=== PATIENT | male | born 1980 | race Caucasian/White ===

== ENCOUNTER 2020-01-31 12:30 | Emergency (ER) | payer MEDICAID, MEDICARE ==
[~2020-01-31] VITALS: Ht 162.6 cm; Wt 77.1 kg
[~2020-01-31 12:30] MED LIST: AML5T PO; BUME1TAB28 PO; FERR-20 PO; MET25T PO
[2020-01-31 17:52] VITALS: BP 146/78
== END 2020-01-31 17:56 | disposition home or self-care (01) ==
LOC: ER 12:30
DX: T17.208A Unspecified foreign body in pharynx causing other injury, initial encounter (principal); E11.22 Type 2 diabetes mellitus with diabetic chronic kidney disease; I13.2 Hypertensive heart and chronic kidney disease with heart failure and with stage 5 chronic kidney disease, or end stage renal disease; I50.9 Heart failure, unspecified; N18.6 End stage renal disease; K21.9 Gastro-esophageal reflux disease without esophagitis; Z88.1 Allergy status to other antibiotic agents; Z79.899 Other long term (current) drug therapy; W22.8XXA Striking against or struck by other objects, initial encounter; Y93.89 Activity, other specified; Y92.89 Other specified places as the place of occurrence of the external cause; Y99.8 Other external cause status
CPT/HCPCS: 42809; 70360; 71045

== ENCOUNTER 2020-07-20 17:17 | Inpatient (IN) | payer MEDICARE, MEDICAID ==
[~2020-07-20] VITALS: Ht 172.7 cm; Wt 75.5 kg
[2020-07-20] MEDS ORDERED: LORazepam 2MG/ML-1ML VIAL IV ONE ×2 (17:44→20:00)
[2020-07-20] MEDS ORDERED: LORazepam 2MG/ML-1ML VIAL ONE (17:44)
[2020-07-20 19:03] LABS: Basophils # (auto) 0.1 10 ^3/uL (0-0.2); Basophils % (auto) 0.9 % (0.0-2.0); Eosinophils # (auto) 0.1 10 ^3/uL (0-0.8); Eosinophils % (auto) 1.1 % (0.0-7.0); Hemoglobin 11.9 g/dL (13.5-17.5); Lymphocytes # (auto) 1.5 10 ^3/uL (0.4-5.4); Lymphocytes % (auto) 13.3 % (10.0-50.0); Mean Corpuscular Hemoglobin 29.4 pg (28.0-32.0); Mean Corpuscular Hgb Conc. 31.3 g/dL (32.0-36.0); Monocytes # (auto) 0.7 10 ^3/uL (0-1.3); Monocytes % (auto) 5.9 % (0.0-12.0); Neutrophils # (auto) 8.8 10 ^3/uL (1.6-8.6); Neutrophils % (auto) 78.8 % (37.0-80.0); Platelet Count (auto) 41 10^3/uL (140-450); Red Blood Cells 4.05 10^6/uL (4.5-5.90); Red Cell Distribution Width 17.3 % (11.8-14.3); White Blood Cell 11.2 10^3/uL (4.4-10.8)
[2020-07-20] MEDS ORDERED: levoFLOXacin 500MG 100 ML IV ONE (19:15)
[2020-07-20] MEDS ORDERED: ACETAMINOPHEN 325 MG TAB PO ONE (19:15)
[2020-07-20 19:23] LABS: Albumin 3.8 g/dL (3.4-5.0); Calcium 9.2 mg/dL (8.5-10.1); Potassium 4.1 mmol/L (3.5-5.1)
[2020-07-20 19:28] LABS: BUN/Creatinine Ratio 6.3; Bilirubin, Total 0.5 mg/dL (0.2-1.0); Total Protein 7.5 g/dL (6.4-8.2)
[2020-07-20 19:36] LABS: Lactic Acid w/Reflex 14.4 mmol/L (0.4-2.0)
[2020-07-20 19:38] LABS: Partial Thromboplastin Time 21.7 sec (23.0-31.2)
[2020-07-20] MEDS ORDERED: FUROSEMIDE 20 MG/2 ML VIAL IV ONE (21:00)
[2020-07-20] MEDS ORDERED: AMIODARONE 450mg/250ml AE 0 ML IV ONE (21:04)
[2020-07-20] MEDS ORDERED: MORPHINE SULF INJ 2 MG/ML SYRINGE 1ML IV PRN ×2 (22:45)
[2020-07-20] MEDS ORDERED: DOCUSATE SOD 100 MG CAP PO PRN (22:45)
[2020-07-20] MEDS ORDERED: NITROGLYCERIN 0.4 MG SL TAB SL PRN (22:45)
[2020-07-20] MEDS ORDERED: HYDROcodone-ACET 5/325MG TAB PO PRN (22:45)
[2020-07-20] MEDS ORDERED: ACETAMINOPHEN 500 MG TAB PO PRN (22:45)
[2020-07-20] MEDS ORDERED: ACETAMINOPHEN 325 MG TAB PO PRN (22:45)
[2020-07-20] MEDS ORDERED: METOCLOPRAMIDE HCL 5MG/ml INJ 2ml VIAL IV PRN (22:45)
[2020-07-20] MEDS ORDERED: DEXTROSE (50%) 50ML SYRG IV PRN (23:00)
[2020-07-20 23:52] VITALS: BP 159/78
[2020-07-21] MEDS: ACCU-CHEK COMFORT CURVE STRIP VI SCH ×6 (00:17→21:54)
[2020-07-21] MEDS: InsuLIN REG 1unit/0.01ml Soln (100units/ml) SC SCH ×6 (03:51→21:54)
[2020-07-21] MEDS ORDERED: ALBUTEROL SULF HFA 90MCG INH 200DOSE IN SCH (06:00)
--- NOTE | 2020-07-21 07:23 | NUR ---
Respiratory note: ASSESSED PT HR 99, RR 18, POX 98% ON 1L NC. NO SOB OR DISTRESS NOTED.
[2020-07-21 08:14] LABS: Basophils # (auto) 0 10 ^3/uL (0-0.2); Basophils % (auto) 0.4 % (0.0-2.0); Eosinophils # (auto) 0 10 ^3/uL (0-0.8); Hematocrit 31.5 % (41.0-53.0); Hemoglobin 10.7 g/dL (13.5-17.5); Lymphocytes # (auto) 0.8 10 ^3/uL (0.4-5.4); Lymphocytes % (auto) 6.5 % (10.0-50.0); Mean Corpuscular Hemoglobin 30.1 pg (28.0-32.0); Mean Corpuscular Hgb Conc. 34.1 g/dL (32.0-36.0); Mean Corpuscular Volume 88.3 fL (80.0-100.0); Monocytes # (auto) 1.2 10 ^3/uL (0-1.3); Monocytes % (auto) 9.5 % (0.0-12.0); Neutrophils # (auto) 10.3 10 ^3/uL (1.6-8.6); Neutrophils % (auto) 83.6 % (37.0-80.0); Platelet Count (auto) 128 10^3/uL (140-450); Red Blood Cells 3.57 10^6/uL (4.5-5.90); Red Cell Distribution Width 17.9 % (11.8-14.3); White Blood Cell 12.3 10^3/uL (4.4-10.8)
[2020-07-21 08:30] LABS: Albumin 3.6 g/dL (3.4-5.0); Magnesium 3.2 mg/dL (1.6-2.6); Potassium 4.1 mmol/L (3.5-5.1)
[2020-07-21 08:35] LABS: BUN/Creatinine Ratio 7.6; Bilirubin, Total 0.6 mg/dL (0.2-1.0); Total Protein 7.3 g/dL (6.4-8.2)
[2020-07-21] MEDS ORDERED: MORPHINE SULF INJ 2 MG/ML SYRINGE 1ML IV PRN (11:00)
[2020-07-21] MEDS ORDERED: METOPROLOL TARTRATE 25 MG TAB PO ONE (11:00)
[2020-07-21] MEDS ORDERED: DEXTROSE (50%) 50ML SYRG IV PRN (11:00)
[2020-07-21] MEDS: ZINC SULFATE 220mg CAP or TAB PO SCH (11:19)
[2020-07-21] MEDS: DOXYCYCLINE 100 MG TAB/CAP PO SCH ×2 (11:19→21:48)
[2020-07-21] MEDS: ENOXAPARIN SOD 30 MG/0.3 ML SYRINGE SC SCH (11:19)
[2020-07-21] MEDS: ASCORBIC ACID 1,000 MG TAB PO SCH (11:19)
[2020-07-21] MEDS: ONDANSETRON HCL 4 MG/2 ML VIAL IV PRN ×2 (12:43→13:11)
[2020-07-21] MEDS: METOPROLOL TARTRATE 25 MG TAB PO SCH ×2 (14:45→21:48)
[2020-07-21] MEDS: LABETALOL HCL 5 MG/ML 4ML SYRINGE IV PRN ×3 (17:59→23:18)
[2020-07-21] MEDS ORDERED: BUMETANIDE 1 MG TAB PO SCH (18:00)
[2020-07-21] MEDS: FERROUS SULFATE 325 MG TAB PO SCH (18:34)
[2020-07-21] MEDS: BUMETANIDE 1 MG TAB PO SCH (18:57)
[2020-07-21] MEDS ORDERED: VANCOMYCIN 1GM/250ML 250 ML IV ONE (19:30)
[2020-07-21] MEDS ORDERED: VANCOMYCIN PER PHARMACY 0 MG IV SCH (19:30)
[2020-07-21] MEDS: SACUBITRIL-VALSARTAN 24mg/26mg TAB PO SCH (21:48)
[2020-07-21] MEDS ORDERED: FAMOTIDINE 20 MG TAB PO SCH (22:00)
[2020-07-21] MEDS ORDERED: METOPROLOL TARTRATE 25 MG TAB PO SCH (22:00)
[2020-07-21 22:45] VITALS: BP 201/104
--- NOTE | 2020-07-21 22:45 | NUR ---
Telemetry admit from ER To [facility]- Unit SINCERE TIDWELL admitted to Telemetry unit. Patient oriented to PEREZ SHI, primary RN, unit, room, bed, and unit policies regarding patient care and visiting hours. Patient now on continuous telemetry monitoring, tele box # 15 and telemetry reading on arrival to unit is sinus rhythm. Patient is alert and oriented x4. Patient denies shortness of breath, pain, headache, or dizziness at this time. Vital signs upon admission are the following: BP: 201/104, HR: 83, RR: 20, SPO2: 94% on room air, and TEMP: 99.0, will medicate patient for high blood pressure as ordered by MD. No sign/symptoms of distress noted or verbalized at this time. Instructed on plan of care and encouraged patient to call for assistance as needed, patient verbalized understanding. Bed is locked in lowest position, side rails x 2 are up, call light is within reach, and bed alarm is on.
[2020-07-21] MEDS: levETIRAcetam 500 MG TAB PO SCH (23:17)
[2020-07-22] MEDS ORDERED: LOSA-39 PO (02:27)
[2020-07-22] MEDS ORDERED: HYDR50TA15 PO (02:27)
[2020-07-22] MEDS ORDERED: CLON0.2T PO (02:27)
[2020-07-22] MEDS: LABETALOL HCL 5 MG/ML 4ML SYRINGE IV PRN ×4 (04:04→11:59)
--- NOTE | 2020-07-22 04:04 | NUR ---
Elevated Blood Pressure Blood pressure: 193/96 and heart rate: 82 at this time. Patient denies headaches, chest pain, dizziness, or shortness of breath at this time. Patient medicated for elevated blood pressure as ordered by MD (see eMAR).
--- NOTE | 2020-07-22 04:13 | NUR ---
MRSA Swab MRSA swab collected and sent to lab via bullet.
[2020-07-22 05:00] VITALS: BP 193/96
--- NOTE | 2020-07-22 05:04 | NUR ---
Blood Pressure Reassessment Patient's blood pressure is 163/73, heart rate 83. Patient denies headache, dizziness, shortness of breath or pain at this time.
--- NOTE | 2020-07-22 05:11 | NUR ---
Hospitalist Paged Regarding Elevated Blood Pressure Hospitalist paged regarding elevated blood pressure. Awaiting call back.
[2020-07-22] MEDS: BUMETANIDE 1 MG TAB PO SCH ×2 (06:22→18:26)
[2020-07-22] MEDS: InsuLIN REG 1unit/0.01ml Soln (100units/ml) SC SCH ×2 (06:22→11:13)
[2020-07-22] MEDS: ACCU-CHEK COMFORT CURVE STRIP VI SCH ×2 (06:22→11:13)
--- NOTE | 2020-07-22 07:05 | NUR ---
Hospitalist Returned Call RE: Elevated Blood Pressure Hospitalist returned call regarding elevated blood pressure. Notified Dr. Martinez of patient's high blood pressure after administrating PRN Labetalol 10mg at 05:04. Dr. Martinez also made aware of recent blood pressure. Per Dr. Martinez continue to monitor blood pressure. No other orders received.
--- NOTE | 2020-07-22 07:10 | NUR ---
OPENING SHIFT NOTE ASSUMED CARE OF PATIENT FROM OUTREACH LIBRARIAN RN PEREZ. PATIENT IS AWAKE, ALERT AND ORIENTED X4. PATIENT HAS NO S/S OF DISTRESS/SOB OR PAIN AT THIS TIME. BED IS IN LOWEST POSITION WITH SIDE RAILS RAISED X2, BED WHEELS LOCKED, BED SIDE COMMODE AND CALL LIGHT IS WITHIN REACH. WILL CONTINUE TO MONITOR.
[2020-07-22 07:21] LABS: Basophils # (auto) 0.1 10 ^3/uL (0-0.2); Basophils % (auto) 0.8 % (0.0-2.0); Eosinophils # (auto) 0 10 ^3/uL (0-0.8); Eosinophils % (auto) 0.4 % (0.0-7.0); Hematocrit 29.3 % (41.0-53.0); Hemoglobin 9.8 g/dL (13.5-17.5); Lymphocytes # (auto) 1.1 10 ^3/uL (0.4-5.4); Lymphocytes % (auto) 10.7 % (10.0-50.0); Mean Corpuscular Hemoglobin 30.5 pg (28.0-32.0); Mean Corpuscular Hgb Conc. 33.5 g/dL (32.0-36.0); Mean Corpuscular Volume 91.1 fL (80.0-100.0); Monocytes # (auto) 0.9 10 ^3/uL (0-1.3); Monocytes % (auto) 8.7 % (0.0-12.0); Neutrophils # (auto) 8.3 10 ^3/uL (1.6-8.6); Neutrophils % (auto) 79.4 % (37.0-80.0); Nucleated Red Blood Cells % 0.1 %; Platelet Count (auto) 106 10^3/uL (140-450); Red Blood Cells 3.21 10^6/uL (4.5-5.90); Red Cell Distribution Width 17.8 % (11.8-14.3); White Blood Cell 10.4 10^3/uL (4.4-10.8)
[2020-07-22 07:46] LABS: Anion Gap 13 (5-15); Blood Urea Nitrogen 75 mg/dL (7-18); Calcium 8.7 mg/dL (8.5-10.1); Carbon Dioxide 28 mmol/L (21-32); Chloride 93 mmol/L (98-107); Glucose 83 mg/dL (74-106); Potassium 4.7 mmol/L (3.5-5.1); Sodium 134 mmol/L (136-145)
[2020-07-22 07:50] LABS: Alanine Aminotransferase 22 U/L (16-61); Albumin 3.3 g/dL (3.4-5.0); Alkaline Phosphatase 110 U/L (45-117); Aspartate Aminotransferase 29 U/L (15-37); Bilirubin, Total 0.5 mg/dL (0.2-1.0); Cholesterol 122 mg/dL (< 200); GFR African American 8 mL/min; GFR Non-African American 7 mL/min; HDL Cholesterol 53 mg/dL (40-59); LDL Cholesterol 56 mg/dL (< 100); Magnesium 3.2 mg/dL (1.6-2.6); Total Protein 6.5 g/dL (6.4-8.2); Triglycerides 90 mg/dL (< 150)
[2020-07-22 07:56] VITALS: BP 172/94
[2020-07-22 08:00] VITALS: BP 172/94
--- NOTE | 2020-07-22 08:24 | NUR ---
PAGED DR. RAO FOR CRITICAL TROPONIN. AWAITING CALL BACK.
[2020-07-22] MEDS: FERROUS SULFATE 325 MG TAB PO SCH ×2 (08:45→18:27)
--- NOTE | 2020-07-22 08:57 | NUR ---
SPOKE WITH DR. RAO AND INFORMED HIM OF CRITICAL TROPONIN. SAID "OKAY". NO NEW ORDERS GIVEN.
--- NOTE | 2020-07-22 09:20 | NUR ---
SPOKE WITH DR. DE SANTIAGO INFORMED MD OF LEFT ARM SWELLING AND CRITICAL TROPONIN LEVELS AND BLOOD PRESSURE, MD IS AWARE. PER MD SHE WILL SEE PATIENT ONCE HE IS TRANSFERRED TO THE FLOOR. NO NEW ORDERS GIVEN.
--- NOTE | 2020-07-22 09:47 | NUR ---
ENDORSED CARE TO DI HICKS. PATIENT HAS NO S/S OF DISTRESS/SOB OR PAIN AT THIS TIME. PATIENT TRANSFERRED TO ROOM 223B VIA WHEELCHAIR.
[2020-07-22] MEDS: ENOXAPARIN SOD 30 MG/0.3 ML SYRINGE SC SCH (09:57)
[2020-07-22] MEDS: SACUBITRIL-VALSARTAN 24mg/26mg TAB PO SCH (09:57)
[2020-07-22] MEDS: levETIRAcetam 500 MG TAB PO SCH (09:58)
[2020-07-22] MEDS ORDERED: amLODIPine BESYLATE 5 MG TAB PO SCH (10:00)
[2020-07-22] MEDS: ZINC SULFATE 220mg CAP or TAB PO SCH (10:00)
[2020-07-22] MEDS: METOPROLOL TARTRATE 25 MG TAB PO SCH (10:01)
[2020-07-22] MEDS: DOXYCYCLINE 100 MG TAB/CAP PO SCH (10:02)
[2020-07-22] MEDS: ASCORBIC ACID 1,000 MG TAB PO SCH (10:02)
--- NOTE | 2020-07-22 10:05 | NUR ---
RECEIVED PT FROM [facility] PT TRANSFERRED VIA WHEELCHAIR, ON RA, NO DISTRESS NOTED, MIN/MOD ASSIST NEEDED TO TRANSFER FROM WHEELCHAIR TO BED, VS TAKEN 217/117, P 81, O2 91% ON RA, RR 20, NO CURRENT C/P CP, SOB OR ANY OTHER DISCOMFORT, DIALYSIS ACCESS LOCATED TO RIGHT UPPPER CHEST, SITE CDI, IV PATENT TO LEFT AC, CALL LIGHT PLACED WITHIN REACH, BED ALARM ACTIVATED, CONT CARE
--- NOTE | 2020-07-22 10:10 | NUR ---
HTN PT RECEIVED FROM [facility], PT BP 215/117, P 81, O2 91% ON RA, PT STATES " THIS HIGH BLOOD PRESSURE IS NORMAL FOR ME", PT HAD JUST BEEN GIVEN DAILY BP MEDICATION, WILL RE-ASSESS IN 30 MINUTED, NO DISTRESS NOTED AT THIS TIME
--- NOTE | 2020-07-22 10:45 | NUR ---
HTN BP 215/117, HR 84, NO DISTRESS NOTED, DR LERMA NOTIFIED, NO NEW ORDERS GIVEN AT THIS TIME, WILL MEDICATE WITH LABRTALOL 10MG IV WHEN DUE, CONT CARE
[2020-07-22] MEDS ORDERED: VANCOMYCIN 750mg/250ml 250 ML IV ONE (11:00)
[2020-07-22] MEDS ORDERED: FAMOTIDINE 20 MG TAB PO SCH (11:21)
[2020-07-22 13:00] VITALS: BP 200/110
--- NOTE | 2020-07-22 13:55 | NUR ---
PT OFF UNIT TAKEN TO MRI VIA WHEELCHAIR, NO DISTRESS NOTED, CONT CARE
[2020-07-22] MEDS ORDERED: PANTOPRAZOLE 40 MG TAB PO ONE (15:00)
[2020-07-22] MEDS ORDERED: cloNIDine HCL 0.1 MG TAB PO ONE (15:00)
--- NOTE | 2020-07-22 15:32 | NUR ---
PAGED/CRITICAL DR LERMA PAGEMarciano REGARDING LUE ULTRASOUND, P[employer] WELDER CALLED TO REPORT A THROMBUS FINDING, CONT CARE
[2020-07-22 16:12] VITALS: BP 168/95
--- NOTE | 2020-07-22 16:20 | NUR ---
Pt declined PT eval stating that he does not have any difficulty with functional mobility. Pt states he lives with his and uses crutches for independent ambulation. Pt does not have crutches at the hospital, so he was given a pair of axillary crutches to use. Pt will be discharged from PT caseload.
--- NOTE | 2020-07-22 17:05 | NUR ---
EEG- ELECTROENCEPHALOGRAM COMPLETED ON 07/22/2020.
[2020-07-22 18:49] LABS: Urine WBC None Seen /hpf (0 - 3)
--- NOTE | 2020-07-22 19:30 | NUR ---
Opening shift note Assumed care of patient who is sleeping, respirations even and non-labored with no s/s of distress. Patient awoke to name, A&Ox4, discussed POC with patient who verbalized understanding. Advised patient to call for assistance. Patient stated that he uses crutches to walk at home, crutches and urinal bedside. Bed in lowest locked position with 2 side rails up, call light within reach. Will continue to monitor.
[2020-07-22 19:57] LABS: Urine Bacteria NONE SEEN /hpf (None Seen); Urine Blood 1+ /uL (Negative); Urine Specific Gravity 1.007 (1.001-1.035)
[2020-07-22] MEDS: cloNIDine HCL 0.1 MG TAB PO SCH (21:34)
[2020-07-22] MEDS: hydrALAZINE HCL 25 MG TAB PO SCH (21:34)
--- NOTE | 2020-07-22 21:51 | NUR ---
High Blood Pressure Patient BP 187/108. Blood pressure medications due at this time and administered. Will continue to monitor and recheck in 1 hour.
[2020-07-22 22:00] VITALS: BP 187/108
--- NOTE | 2020-07-22 23:00 | NUR ---
Blood pressure recheck Patient BP 159/78. Patient resting, without SOB or s/s of distress. Will continue to monitor.
--- NOTE | 2020-07-22 23:00 | NUR ---
Respiratory note: PT REFUSE CPAP AT THIS TIME, PT STATES HE KNOWS WHAT CPAP IS AND DOESNT REALLY WANT TO WEAR IT. PT NOTIFIED TO CALL RT IF HE CHANGES HIS MIND.
[2020-07-23 05:00] VITALS: BP 163/96
[2020-07-23] MEDS: BUMETANIDE 1 MG TAB PO SCH ×2 (05:33→19:02)
[2020-07-23] MEDS: hydrALAZINE HCL 25 MG TAB PO SCH ×3 (05:34→21:42)
[2020-07-23] MEDS: cloNIDine HCL 0.1 MG TAB PO SCH ×3 (05:35→21:42)
--- NOTE | 2020-07-23 06:10 | NUR ---
Respiratory note: WENT TO CHECK PT, NO CPAP IN ROOM AND PATIENT DOES NOT PLAN ON WEARING IT TONIGHT.PT DOES NOT WEAR ONE AT HOME. NO RESP DISTRESS NOTED, HR 83, RR 18, SPO2 94% ON ROOM AIR.
[2020-07-23 06:37] LABS: Basophils # (auto) 0.1 10 ^3/uL (0-0.2); Basophils % (auto) 1.2 % (0.0-2.0); Eosinophils # (auto) 0.3 10 ^3/uL (0-0.8); Eosinophils % (auto) 3.9 % (0.0-7.0); Hematocrit 27.9 % (41.0-53.0); Hemoglobin 9.4 g/dL (13.5-17.5); Lymphocytes # (auto) 1.4 10 ^3/uL (0.4-5.4); Lymphocytes % (auto) 17.6 % (10.0-50.0); Mean Corpuscular Hemoglobin 30.1 pg (28.0-32.0); Mean Corpuscular Hgb Conc. 33.7 g/dL (32.0-36.0); Mean Corpuscular Volume 89.4 fL (80.0-100.0); Monocytes # (auto) 0.8 10 ^3/uL (0-1.3); Monocytes % (auto) 9.7 % (0.0-12.0); Neutrophils # (auto) 5.4 10 ^3/uL (1.6-8.6); Neutrophils % (auto) 67.6 % (37.0-80.0); Platelet Count (auto) 140 10^3/uL (140-450); Red Blood Cells 3.12 10^6/uL (4.5-5.90); Red Cell Distribution Width 17.7 % (11.8-14.3); White Blood Cell 7.9 10^3/uL (4.4-10.8)
[2020-07-23 06:56] LABS: BUN/Creatinine Ratio 8.6; Calcium 8.2 mg/dL (8.5-10.1); Potassium 4.8 mmol/L (3.5-5.1)
--- NOTE | 2020-07-23 06:56 | NUR ---
Rounding Patient sleeping, respirations even and non-labored with no s/s of distress at this time.
[2020-07-23] MEDS ORDERED: SODIUM CHL 0.9% 1000 ML BAG XX ONE (07:00)
--- NOTE | 2020-07-23 07:01 | NUR ---
Critical Lab BUN: 95 Cr: 11 Will page physician
--- NOTE | 2020-07-23 07:11 | NUR ---
Critical lab Troponin: 0.61
[2020-07-23 08:00] VITALS: BP 174/68
--- NOTE | 2020-07-23 08:06 | NUR ---
CRITICAL SPOKE WITH BLAIR FROM LAB, REPORTED POSITIVE BLOOD CULTURE, PT STABLE, NO DISTRESS NOTED, DR MURO PAGED CONT CARE
--- NOTE | 2020-07-23 08:40 | NUR ---
MD CALL BACK DR MURO CALLED BACK, UPDATED ON CRITICAL FINDING, STATES DR LERMA WILL FOLLOW UP, CONT CARE
[2020-07-23 09:00] VITALS: BP_SYST 176; BP_SYST 182; BP_DIAS 103; BP_DIAS 95
--- NOTE | 2020-07-23 09:09 | NUR ---
AT BEDSIDE DR LERMA AT BEDSIDE, DISCUSSING POC, INCLUDING MRI AND UPPER EXTREMITY RESULTS, CALLED AND UPDATED PT NAFISA, PER MD HOLD LOVENOX DUE TO MRI RESULTS, AWAITING NEURO RE-EVAL, CONT CARE
[2020-07-23] MEDS: ENOXAPARIN SOD 30 MG/0.3 ML SYRINGE SC SCH (10:00)
--- NOTE | 2020-07-23 11:25 | NUR ---
DIALYSIS NURSE AT BEDSIDE TO BEGIN TX
--- NOTE | 2020-07-23 12:19 | NUR ---
NEPHROLOGY DR CHANG AT BEDSIDE, MD NOTIFIED OF ELEVATED BP, AND MRI RESULTS, AT BEDSIDE TO DISCUSS POC WITH PT, CONT CARE
--- NOTE | 2020-07-23 14:45 | NUR ---
DIALYSIS COMPLETE VS , P 73, DAILY MEDICATION WILL BE GIVEN, CONT CARE
--- NOTE | 2020-07-23 15:05 | NUR ---
Assessment Patient is a 39-year-old male who is alert and oriented. Prior to admission patient lived with his Marisol and functioned with assistance. Per patient his helps him with his ADL's. Per patient he does not have any medical equipment now. Per patient he will return home to his prior living arrangement post discharge and family will transport him home. Per patient he is on dialysis with [facility] on T, , S at 7am. Advised patient there is a social service consult for home health safety evaluation, physical therapy, medication management and vitals. Patient refused home health service. Per patient he has good family support and his helps him at home. Informed Patient he has a right to participate in all discharge planning. Patient verbalized understanding discharge plan. Addendum: 07/23/20 at 1630 by LYNSEY WALSH Amended: Links added.
[2020-07-23] MEDS: FERROUS SULFATE 325 MG TAB PO SCH (15:35)
[2020-07-23] MEDS: PANTOPRAZOLE 40 MG TAB PO SCH (15:36)
[2020-07-23] MEDS: LOSARTAN POTASSIUM 50 MG TAB PO SCH (15:36)
[2020-07-23] MEDS ORDERED: VANCOMYCIN 500 MG in D5W 5% 100 ML IV ONE (16:00)
[2020-07-23 16:50] VITALS: BP 163/118
[2020-07-23] MEDS: ASCORBIC ACID 1,000 MG TAB PO SCH (17:22)
--- NOTE | 2020-07-23 19:25 | NUR ---
Opening Shift Note Assumed care of patient, awake, alert, and oriented. No S/S of distress/SOB or pain. Bed in lowest/locked position, bed rails up x2, call light within reach. Instructed on POC and to call for assist PRN. Will continue to monitor for changes Q1hr and PRN.
[2020-07-23 20:00] VITALS: BP 163/118
[2020-07-23 22:00] VITALS: BP 183/109
[2020-07-24] VITALS (7 sets, daily range): BP systolic 135–179; BP diastolic 68–109
[2020-07-24] MEDS: LABETALOL HCL 5 MG/ML 4ML SYRINGE IV PRN ×3 (00:25→11:48)
--- NOTE | 2020-07-24 01:32 | NUR ---
Patient HR dropped to 32 beats per min Received Tele strip from [employer]; Strip put in patient file Upon entering patient room, patient was sleeping flat and on right side. Stood at patient bedside and patient stopped snoring; noted an episode of not inhaling or exhaling. Woke up patient and told to lift HOB higher, due to having episodes of not breathing while laying flat. Patient heart rate now in 70's to 80's. Will continue to monitor.
[2020-07-24] MEDS: BUMETANIDE 1 MG TAB PO SCH ×2 (05:40→17:35)
[2020-07-24] MEDS: hydrALAZINE HCL 25 MG TAB PO SCH ×3 (05:40→21:45)
[2020-07-24] MEDS: cloNIDine HCL 0.1 MG TAB PO SCH ×3 (05:41→21:46)
[2020-07-24 06:42] LABS: BUN/Creatinine Ratio 6.9; Calcium 8.6 mg/dL (8.5-10.1); Potassium 4.6 mmol/L (3.5-5.1)
[2020-07-24] MEDS: FERROUS SULFATE 325 MG TAB PO SCH ×3 (08:26→17:35)
[2020-07-24] MEDS ORDERED: NIFEdipine 10 MG CAP PO ONE (09:00)
[2020-07-24] MEDS ORDERED: levoFLOXacin 500 MG TAB PO SCH ×2 (09:00→11:00)
--- NOTE | 2020-07-24 09:00 | NUR ---
Opening Shift Note Assumed care of patient, awake and alert. No S/S of distress/SOB or pain. Instructed on POC and to call for assist PRN. Vitals 97.9, NJ 88, BP 166/90, RR 18, O2 97%. Patient verbalized understanding and had no questions. Will continue to monitor for changes Q1hr and PRN.
--- NOTE | 2020-07-24 09:15 | NUR ---
ROUNDS Dr Harris at bedside for rounds, new orders received and followed through. Patient updated on plan of care, verbalized understanding.
[2020-07-24] MEDS ORDERED: DOXYCYCLINE 100 MG TAB/CAP PO SCH (10:00)
[2020-07-24] MEDS: PANTOPRAZOLE 40 MG TAB PO SCH (10:03)
[2020-07-24] MEDS: ENOXAPARIN SOD 30 MG/0.3 ML SYRINGE SC SCH (10:04)
[2020-07-24] MEDS: LOSARTAN POTASSIUM 50 MG TAB PO SCH (10:28)
[2020-07-24] MEDS: ASCORBIC ACID 1,000 MG TAB PO SCH (10:29)
--- NOTE | 2020-07-24 11:57 | NUR ---
High Blood Pressure Patient's blood pressure read 179/106 after given routine 100 mg of Losartan and one time dose of 30 mg of Nifedipine. PRN dose of Labetalol 10 mg was given. Patient shows no signs or symptoms of complications and has no complaints at this time. Patient was educated on the implications of the medication and side effects. Patient verbalized understanding and questions were answered regarding treatment. Will continue to monitor the patient.
--- NOTE | 2020-07-24 13:05 | NUR ---
RE: Blood Pressure Patient's blood pressure reassessed after 30 min. BP 135/75.
[2020-07-24] MEDS: NIFEdipine 10 MG CAP PO SCH ×2 (14:19→21:48)
--- NOTE | 2020-07-24 14:56 | NUR ---
Nutrition Assessment Note Please see attached link for complete assessment [employer] needs BW 75 [id number] kcals (30-33 kcal/kgBW), Est Protein needs: 90-97 gms/day (1.2-1.3 gm/kgBW r/t elev RFT) Addendum: 07/24/20 at [address] Amended: Links added.
--- NOTE | 2020-07-24 19:11 | NUR ---
Care endorsed to DI Rodriges, night nurse.
[2020-07-24] MEDS: LABETALOL HCL 200 MG TAB PO SCH (21:47)
--- NOTE | 2020-07-24 23:00 | NUR ---
Patient Refused CPAP Dr. Klein spoke w/ patient about using the CPAP. I Spoke to patient about CPAP and he changed his mind saying " I don't want it." Re-educated patient about the reason for a CPAP, patient still unsure and not willing to try. Will continue to monitor.
[2020-07-25 05:00] VITALS: BP 156/84
[2020-07-25] MEDS: BUMETANIDE 1 MG TAB PO SCH (05:41)
[2020-07-25] MEDS: hydrALAZINE HCL 25 MG TAB PO SCH ×2 (05:41→14:21)
[2020-07-25] MEDS: cloNIDine HCL 0.1 MG TAB PO SCH ×2 (05:42→14:21)
[2020-07-25] MEDS: NIFEdipine 10 MG CAP PO SCH ×2 (05:43→14:22)
[2020-07-25 06:44] LABS: Anion Gap 13 (5-15); BUN/Creatinine Ratio 7.8; Blood Urea Nitrogen 74 mg/dL (7-18); Calcium 8.5 mg/dL (8.5-10.1); Carbon Dioxide 22 mmol/L (21-32); Chloride 99 mmol/L (98-107); GFR African American 8 mL/min; GFR Non-African American 7 mL/min; Glucose 88 mg/dL (74-106); Potassium 5.2 mmol/L (3.5-5.1); Sodium 134 mmol/L (136-145)
[2020-07-25] MEDS ORDERED: SODIUM CHL 0.9% 1000 ML BAG XX ONE (07:00)
[2020-07-25 08:00] VITALS: BP 106/77
[2020-07-25] MEDS: FERROUS SULFATE 325 MG TAB PO SCH (08:00)
--- NOTE | 2020-07-25 08:00 | NUR ---
Opening Shift Note Assumed care of patient, awake and alert. No S/S of distress/SOB or pain. Insructed on POC and to callfor assist PRN, will continue to monitor for changes Q1hr and PRN.
[2020-07-25 09:00] VITALS: BP 114/57
[2020-07-25] MEDS: PANTOPRAZOLE 40 MG TAB PO SCH (10:00)
[2020-07-25] MEDS ORDERED: ASCORBIC ACID 500 MG TAB PO SCH (10:00)
--- NOTE | 2020-07-25 11:12 | NUR ---
Opening Shift Note Assumed care of patient, awake and alert. No S/S of distress/SOB or pain. Insructed on POC and to callfor assist PRN, will continue to monitor for changes Q1hr and PRN. Addendum: 07/25/20 at 1114 by ARIANNA NUNN RN RN Wrong time
[2020-07-25] MEDS ORDERED: VANCOMYCIN 500 MG in D5W 5% 100 ML IV ONE (12:15)
[2020-07-25 12:53] VITALS: BP 178/96
[2020-07-25] MEDS: LABETALOL HCL 200 MG TAB PO SCH (13:06)
[2020-07-25] MEDS ORDERED: PANT40T PO (13:50)
[2020-07-25] MEDS ORDERED: NIF10C PO (13:50)
[2020-07-25] MEDS ORDERED: FER325T PO (13:51)
[2020-07-25] MEDS ORDERED: LABE200T6 PO (13:51)
[2020-07-25] MEDS ORDERED: VANCOMYCIN 1GM/250ML 250 ML IV ONE (14:00)
[2020-07-25] MEDS ORDERED: DOXY-286 PO (14:02)
[2020-07-25 15:03] VITALS: BP 138/77
[2020-07-25 16:34] VITALS: BP 134/68
== END 2020-07-25 18:05 | disposition home or self-care (01) | DRG 100 ==
LOC: EDBD 17:17 → ER 17:17 → TELE 17:18 → TELE-E-ADS 07-21 22:45 → TELE-CENTR 07-22 09:50
PROVIDERS: ADMIT Hospitalist; ATTEND Internal Medicine
PROC: 5A1D70Z Performance of Urinary Filtration, Intermittent, Less than 6 Hours Per Day (ICD-10-PCS; principal; 2020-07-23)
PROC: 5A1D70Z Performance of Urinary Filtration, Intermittent, Less than 6 Hours Per Day (ICD-10-PCS; 2020-07-25)
DX: R56.9 Unspecified convulsions (principal); I61.9 Nontraumatic intracerebral hemorrhage, unspecified; I21.A1 Myocardial infarction type 2; N18.6 End stage renal disease; J18.9 Pneumonia, unspecified organism; I67.83 Posterior reversible encephalopathy syndrome; I50.43 Acute on chronic combined systolic (congestive) and diastolic (congestive) heart failure; I67.4 Hypertensive encephalopathy; I82.612 Acute embolism and thrombosis of superficial veins of left upper extremity; E87.1 Hypo-osmolality and hyponatremia; I13.2 Hypertensive heart and chronic kidney disease with heart failure and with stage 5 chronic kidney disease, or end stage renal disease; Z94.0 Kidney transplant status; R65.10 Systemic inflammatory response syndrome (SIRS) of non-infectious origin without acute organ dysfunction; K29.70 Gastritis, unspecified, without bleeding; Z99.2 Dependence on renal dialysis; I16.0 Hypertensive urgency; E78.5 Hyperlipidemia, unspecified; D63.8 Anemia in other chronic diseases classified elsewhere; E03.9 Hypothyroidism, unspecified; B96.89 Other specified bacterial agents as the cause of diseases classified elsewhere; E11.22 Type 2 diabetes mellitus with diabetic chronic kidney disease; F17.200 Nicotine dependence, unspecified, uncomplicated; G47.33 Obstructive sleep apnea (adult) (pediatric); K21.9 Gastro-esophageal reflux disease without esophagitis; Z20.828 Contact with and (suspected) exposure to other viral communicable diseases; Z83.3 Family history of diabetes mellitus; Z79.899 Other long term (current) drug therapy; I25.2 Old myocardial infarction
CPT/HCPCS: 36415; 70450; 70551; 71045; 80048; 80053; 80061; 80202; 80320; 81001; 82962; 83036; 83605; 83735; 83880; 84443; 84484; 85025; 85610; 85730; 87040; 87077; 87081; 87086; 87186; 87426; 90935; 93005; 93971; 94760; 95819; 96365; 96366; 96375; 96376; G0378; J1642; J1815; J1956; J2405; J3490; J7060